=== PATIENT | male | born 1985 | race Caucasian/White ===

== ENCOUNTER 2022-04-14 12:51 | Outpatient (CLI) | payer MEDICAID ==
--- NOTE | 2022-04-15 09:19 | MRI Report ---
PROCEDURE: SHOULDER WO - RT INDICATIONS: RJIGHT SHOULDER PAIN TECHNIQUE: Noncontrast oblique coronal T2 fast spin echo with fat saturation, oblique sagittal T1 spin echo and T2 fast spin echo with fat saturation, axial T1 spin echo and T2 fast spin echo with fat saturation t hrough the shoulder. COMPARISON: X-ray right shoulder, 03/15/2022. FINDINGS: Image quality: There are motion artifacts. Rotator cuff: There is moderate supraspinatus and subscapularis tendinosis without full-thickness ten don tear. Mild infraspinatus tendinosis is present. No rotator cuff muscle atrophy on sagittal image s. Bones and bursae: There is posterior dislocation of the humeral head. There is impaction fracture of the anterior medial aspect of the humeral head with associated subchondral edema/contusions (reverse Hill-Sachs defect). There is injury to the posterior inferior glenoid rim with mild subchondral edema . No significant acromioclavicular joint degeneration. The acromion demonstrates conventional anatomy, without an os acromiale. There is a small glenohumeral joint effusion. A small subacromial/subdeltoi d bursal fluid is present, suggesting mild bursitis. Capsule and soft tissues: There is posterior labral tear and at least partial tear of the posterior band of the inferior glenohumeral ligament which appears thickened and edematous. The long head of the biceps tendon is intact with mild to moderate tendinosis. The rotator interval appears normal, without fibrosis. The coracohumeral ligament is normal in thickness. IMPRESSION: 1. Posterior shoulder dislocation. 2. Fracture/deformity of the humeral head (reverse Hill-Sachs defect). 3. Injury of the posterior superior glenoid rim and the posterior labrum. Reviewed by: Elena Cardenas MD on 04/15/2022 9:18 AM PST Approved by: Elena Cardenas MD on 04/15/2022 9:18 AM PST Station ID: [id number]
== END 2022-04-14 12:52 | disposition home or self-care (01) ==
LOC: DI 12:51
PROVIDERS: ATTEND Nurse Practitioner
DX: S43.004A Unspecified dislocation of right shoulder joint, initial encounter (principal); R93.6 Abnormal findings on diagnostic imaging of limbs; S49.91XA Unspecified injury of right shoulder and upper arm, initial encounter